=== PATIENT | female | born 1955 | race Caucasian/White ===

== ENCOUNTER → 2017-10-20 | Outpatient (CLI) | payer OTHER ==
[~2017-10-20] MED LIST: ASPI-621 PO; ATOR40TA78 PO; BIOT10TA PO; CALCIUM PO; CHOL200024 PO; CITA40TA12 PO; CLON1TAB23 PO; DENO60DI SC; DIAZ10TA4 PO; DICY10CA3 PO; DIPH25CA61 PO; HYDR-3237 PO; MELA10TA PO; MELO15TA24 PO; METF500T4 PO; METH10TA4 PO; OLAN15TA3 PO; OMEP-110 PO; PRED50TA PO; ZOLP12.52 PO
== END | disposition home or self-care (01) ==
LOC: CVU 10:31
PROVIDERS: ATTEND Nurse Practitioner Family
DX: I63.543 Cerebral infarction due to unspecified occlusion or stenosis of bilateral cerebellar arteries (principal); I25.2 Old myocardial infarction
CPT/HCPCS: 93880

== ENCOUNTER 2017-11-21 08:45 | Day surgery (SDC) | payer OTHER ==
[~2017-11-21] VITALS: Ht 167.6 cm; Wt 62.7 kg
[2017-11-21 09:14] VITALS: BP 107/75
[2017-11-21] MEDS ORDERED: LIDOCAINE/PF 1%-EPI 1:200K, 30 ML ONE (09:25)
== END 2017-11-21 10:50 | disposition home or self-care (01) ==
LOC: CACL 08:45
PROVIDERS: ATTEND Internal Medicine Cardiovascular Disease
DX: I63.9 Cerebral infarction, unspecified (principal); Z79.82 Long term (current) use of aspirin; Z88.8 Allergy status to other drugs, medicaments and biological substances
CPT/HCPCS: 33282; C1764; J3490

== ENCOUNTER → 2018-10-24 | Outpatient (CLI) | payer OTHER ==
[~2018-10-24] MED LIST changes: -ASPI-621 PO; +ASPI81TA45 PO; +METF500T17 PO; -METF500T4 PO
== END | disposition home or self-care (01) ==
LOC: RAD 13:15
PROVIDERS: ATTEND Internal Medicine Gastroenterology
DX: K21.9 Gastro-esophageal reflux disease without esophagitis (principal); K58.9 Irritable bowel syndrome, unspecified; R10.33 Periumbilical pain; F31.9 Bipolar disorder, unspecified
CPT/HCPCS: 74018